=== PATIENT | female | born 1990 ===

== ENCOUNTER 2022-06-05 13:15 | Inpatient (IN) | payer OTHER ==
[~2022-06-05] VITALS: Ht 165.1 cm; Wt 74.4 kg
[2022-06-23] MEDS ORDERED: PRENATABS RX T1 EACH PO (05:03)
== END 2022-06-25 12:47 | disposition home or self-care (01) | DRG 807 ==
LOC: LDR 06-23 04:55 → OB/GYN 06-23 18:11
PROVIDERS: ADMIT Obstetrics & Gynecology Gynecology; ATTEND Obstetrics & Gynecology Gynecology
PROC: 10E0XZZ Delivery of Products of Conception, External Approach (ICD-10-PCS; principal; 2022-06-23)
PROC: 0KQM0ZZ Repair Perineum Muscle, Open Approach (ICD-10-PCS; 2022-06-23)
PROC: 4A1HXCZ Monitoring of Products of Conception, Cardiac Rate, External Approach (ICD-10-PCS; 2022-06-23)
DX: O70.1 Second degree perineal laceration during delivery (principal); Z37.0 Single live birth; Z3A.39 39 weeks gestation of pregnancy; Z20.822 Contact with and (suspected) exposure to COVID-19